=== PATIENT | female | born 2000 | race Caucasian/White ===

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

== ENCOUNTER → 2021-02-02 | Outpatient (CLI) | payer BC, OTHER ==
--- NOTE | 2021-02-02 14:32 | PFTRPT ---
Height: 69.00 Inches Weight: 127.00 Lbs BSA: 1.70 Diagnosis: R06.02 DATE: 02/02/2021 ORDERING PHYSICIAN: Baylee Blue NP Pre and post bronchodilator studies have excellent technical quality. Forced vital capacity is normal. FEV1 is in proportion. Obstructive index is therefore normal. Expiratory limit of the flow-volume loop is normal. No significant bronchodilator response is identified. Total lung capacity is normal. Residual volume does suggest a degree of air trapping. Diffusing capacity is normal. No hemoglobin available for correction. Airway resistance and conductance are normal. IMPRESSION: Cannot rule out a degree of air trapping. Please correlate clinically. MTDD
== END ==
LOC: M CARPUL 14:04
PROVIDERS: ATTEND Nurse Practitioner Adult Health
DX: R06.02 Shortness of breath (principal); Z82.5 Family history of asthma and other chronic lower respiratory diseases